=== PATIENT | female | born 1990 | race Asian ===

== ENCOUNTER 2022-04-24 07:43 | Inpatient (IN) ==
[2022-04-24] MEDS ORDERED: OXYTOCIN 30 UNITS/500 ML BAG IV PRN ×2 (07:46)
[2022-04-24 08:55] LABS: Hematocrit (blood only) 38.4 % (37-47); Hemoglobin 12.8 g/dL (12.0-16.0); Mean Corpuscular Hemoglobin 32.2 pg (25-34); Mean Corpuscular Hgb Conc 33.3 g/dL (32-36); Mean Corpuscular Volume 96.7 fL (80-100); Mean Platelet Volume 11.1 fL (7.4-10.4); Platelet Count 183 K/uL (130-400); RDW Coefficient of Variation 14.6 % (11.5-14.5); RDW Standard Deviation 51.7 fL (36.4-46.3); Red Blood Count 3.97 M/uL (4.2-5.4); White Blood Count 7.99 K/uL (4.8-10.8)
[2022-04-24] MEDS: LACTATED RINGER'S 1,000 ML IV PRN ×3 (09:24→17:14)
--- NOTE | 2022-04-24 09:29 | History & Physical Report ---
Date of Service April 24, 2022 Assessment & Plan (1) Encounter for induction of labor: (2) resulting from in vitro fertilization, antepartum: Plan: admit, iv, labs. start pitocin. arom done. fhts categ 1. Admission and Anticipated Discharge Date Admission Date: April 24, 2022 History of Present Illness Chief Complaint: planned induction Primary Care Provider: Diogo Huffman III, CRNP 31yo at 39+wks ega presents to L&D with above cc. Elective induction. PNC c/b 1. IVF, normal echo PNL rh pos, ri ,gbs neg OBH: x 1 GYNH: nl paps, no stds Allergies Allergy/AdvReac Type Severity Reaction Status Date / Time No Known Allergies Allergy Verified 04/23/22 11:22 Home Medications Medication Instructions Recorded Confirmed Type aspirin 81 mg chewable tablet 81 mg PO DAILY 01/08/22 04/24/22 History mv-ferrous vgjicfrz-Th-L-FA 65 1 tab PO DAILY #30 tab 03/12/22 04/24/22 Rx mg-1 mg tablet (Vitafol) Patient History Medical History History of chicken pox Miscarriage Surgical History S/P dilatation and curettage S/P wisdom tooth extraction Family History Father Lung cancer Mother Diabetes Grandmother (Maternal) Diabetes Denies family history of Ovarian cancer Breast cancer Colorectal cancer Social History Smoking Status: Never smoker Second Hand Exposure: Yes; Hx Alcohol Use: No Hx Substance Use: No Preferred Language: Mandarin Tuvaluan Communication Ability: Effective Visual Impairment: No Limitations Hearing Ability: Normal Ham Smoker Required: No Beliefs That Will Affect Care: None marital status: Single marital status details: fob engaged-[employer] (36) [phone] Current Living Situation: Significant Other Current Living Situation Comment: lives with fob, no pets current occupational status: unemployed current occupation: working from home Other Information That Helps Us Care for You: No Feels Safe at Home: Yes Safety Concerns: Feels Safe At This Time Childhood Exposure to Second-Hand Smoke: No caffeine: No during the past year weight has: increased > 10 lbs Dental Care, Regularly: Yes Physical Activity Frequency: Daily Seatbelt Use: always Sunscreen Use: No Assistive Devices: Glasses Review of Systems as per Subjective / HPI Physical Exam Constitutional: WD/WN, vitals as above Respiratory: normal respiratory effort, lungs clear to auscultation Cardiovascular: Rate/Rhythm: regular rate and regular rhythm Gastrointestinal (Abdomen): soft gravid nt efw 7-8# Musculoskeletal: no edema nontender calves Neurologic: grossly normal Psychiatric: A+Ox3, euthymic affect Genitourinary: Manual OB Exam: + cervical dilation (3), + cervical effacement (75%), + station (mid soft) -2 and + amniotic fluid clear OB Exam Monitor Tracing: + external FHT monitor used, + external uterine monitor used (q5), + category I and + normal FHT variability Results & Data ([facility]) Vital Signs (Past 12 Hours) Vital Signs Temp Pulse Resp BP 04/24/22 08:12 97.7 F 85 18 124/73 04/24/22 07:54 97.7 F 18 04/24/22 07:53 85 124/73 Coding Level of Care Code None Diagnoses Encounter for induction of labor Z34.90 resulting from in vitro fertilization, antepartum O09.819
[2022-04-24] MEDS ORDERED: fentaNYL citrate 100 MCG/2 ML VIAL ONE ×3 (11:46→21:06)
[2022-04-24] MEDS ORDERED: SODIUM CHLORIDE 0.9% INJ 10 ML VIAL ONE (11:46)
[2022-04-24] MEDS ORDERED: BUPIVACAINE 0.25% 30 ML VIAL ONE ×2 (11:46→18:37)
[2022-04-24] MEDS ORDERED: ePHEDrine sulfate 50 MG/ML AMP ONE (11:46)
[2022-04-24] MEDS ORDERED: fentaNYL 2MCG/ML ROPIVACAINE 1.25MG/ML 100 ML BAG EPI ONE (11:47)
[2022-04-24] MEDS ORDERED: NALBUPHINE HCL INJ 10 MG/ML AMP IV PRN ×2 (11:58→21:45)
[2022-04-24] MEDS ORDERED: diphenhydrAMINE 50 MG/ML VIAL IV PRN ×2 (11:58→21:45)
[2022-04-24] MEDS ORDERED: NALOXONE HCL 0.4 MG/1 ML VIAL/CARP IV PRN ×2 (11:58→21:45)
[2022-04-24] MEDS ORDERED: ONDANSETRON INJ 2 MG/ML 2 ML VIAL IV PRN ×2 (11:58→21:47)
[2022-04-24] MEDS ORDERED: fentaNYL 2MCG/ML ROPIVACAINE 1.25MG/ML 100 ML BAG EPI PRN (11:58)
[2022-04-24] MEDS ORDERED: NALOXONE HCL 1 MG in SODIUM CHLORIDE 0.9% 1000ML 1,000 ML IV PRN ×2 (11:58→21:45)
[2022-04-24] MEDS ORDERED: ePHEDrine sulfate 50 MG/ML AMP IV PRN ×2 (11:58→21:45)
--- NOTE | 2022-04-24 11:58 | Anesthesiology Consultation ---
Date of Service April 24, 2022 Assessment & Plan ASA ASA2 Proposed Anesthesia Anesthesia Type: Labor Epidural Risk / Benefits Reviewed With: PT / POA / Parent / Guardian, Accepts Plan and Informed Consent Obtained History Height/Weight Height: 5 ft 3 in Weight: 90.265 kg Allergies Allergy/AdvReac Type Severity Reaction Status Date / Time No Known Allergies Allergy Verified 04/23/22 11:22 Medications Home Medications Medication Instructions Recorded Confirmed Last Taken aspirin 81 mg chewable tablet 81 mg PO DAILY 01/08/22 04/24/22 04/23/22 21:00 mv-ferrous qqqdthrg-Ea-G-FA 65 1 tab PO DAILY #30 tab 03/12/22 04/24/22 04/22/22 08:00 mg-1 mg tablet (Vitafol) Active Medications Generic Name Dose Route Start Last Admin Trade Name Freq PRN Reason Stop Dose Admin Oxytocin 30 units in 500 mls @ 11 mls/hr 04/24/22 07:46 04/24/22 13:30 Pitocin IV 04/26/22 07:45 0.66 units/hr .Q24H PRN 11 mls/hr Labor Induction/Augmentation Titration Protocol 0.66 UNITS/HR Lactated Ringer's 1,000 mls @ 125 mls/hr 04/24/22 07:46 04/24/22 12:49 Lr IV 04/26/22 07:45 125 mls/hr .Q8H PRN Infusion L&D Protocol Protocol Past Medical History Medical History History of chicken pox Miscarriage Exercise / Class Metabolic Activity II 4-5 Yardwork/Stairs/Walk up hill Past Family History Family History Father Lung cancer Mother Diabetes Grandmother (Maternal) Diabetes Denies family history of Ovarian cancer Breast cancer Colorectal cancer Past Surgical History Surgical History S/P dilatation and curettage S/P wisdom tooth extraction Past Anesthesia History No Hx of Anesthesia Complications and No Family Hx of Anesthesia Complications History of PONV No Hx of PONV and No Hx of Motion Sickness Social History Smoking Status: Never smoker Hx Alcohol Use: No Hx Substance Use: No substance use type: does not use Review of Systems denies fever/cough/ colds/ chest pain/ SOB/ DAISY denies DAISY Physical Exam Vital Signs Last Vital Signs Temp 36.8 C 04/24/22 13:30 Pulse 84 04/24/22 14:01 Resp 18 04/24/22 13:30 BP 108/57 L 04/24/22 13:51 Pulse Ox 99 04/24/22 14:01 ENMT Mouth: no TMJ abnormality and no dentition abnormality Thyromental Distance: > or= 3.5 Finger Breadths Mallampati Class: II Neck neck extension not limited Respiratory normal respiratory effort; no respiratory distress Auscultation: lungs clear to auscultation bilaterally Cardiovascular Rate/Rhythm: regular rate and regular rhythm Neurologic moves all extremities Psychiatric Orientation: alert and oriented x 3 Testing Laboratory Results 04/24/22 08:30
--- NOTE | 2022-04-24 13:00 | Labor Progress Brief Note ---
Date of Service April 24, 2022 Subjective getting comfortable with epidural Assessment & Plan (1) Encounter for induction of labor: (2) resulting from in vitro fertilization, antepartum: Plan: c/w pit, good cx change. fhts categ 1. Admission and Anticipated Discharge Date Admission Date: April 24, 2022 Physical Exam Constitutional: WD/WN, vitals as above Genitourinary: Manual OB Exam: + cervical dilation 5 cm, + cervical effacement 90% and + station -1 OB Exam Monitor Tracing: + external FHT monitor used, + external uterine monitor used (q2-3 pit at 9), + category I and + normal FHT variability Results & Data ([facility]) Vital Signs (Past 12 Hours) Vital Signs Temp Pulse Resp BP Pulse Ox 04/24/22 12:56 84 97 04/24/22 12:51 78 99 04/24/22 12:50 81 117/70 04/24/22 12:46 81 111/69 99 04/24/22 12:41 83 98 04/24/22 12:40 81 116/69 04/24/22 12:36 85 99 04/24/22 12:33 82 107/67 04/24/22 12:31 80 112/71 99 04/24/22 12:29 85 109/68 04/24/22 12:27 86 113/68 04/24/22 12:26 84 98 04/24/22 12:25 75 116/69 04/24/22 12:24 94 H 102/55 L 04/24/22 12:22 93 H 125/72 04/24/22 12:21 82 99 04/24/22 12:16 95 H 99 04/24/22 11:42 97.9 F 18 04/24/22 11:31 88 119/80 04/24/22 10:30 78 117/77 04/24/22 10:01 77 120/75 04/24/22 09:30 97.7 F 18 04/24/22 08:12 97.7 F 85 18 124/73 04/24/22 07:54 97.7 F 18 04/24/22 07:53 85 124/73 Coding Level of Care Code None Diagnoses Encounter for induction of labor Z34.90 resulting from in vitro fertilization, antepartum O09.819
--- NOTE | 2022-04-24 15:25 | Labor Progress Brief Note ---
Date of Service April 24, 2022 Subjective comfortable Assessment & Plan (1) Encounter for induction of labor: (2) resulting from in vitro fertilization, antepartum: Plan: ready for 2nd stage. fhts categ 1. Admission and Anticipated Discharge Date Admission Date: April 24, 2022 Physical Exam Constitutional: WD/WN, vitals as above Genitourinary: Manual OB Exam: + cervical dilation 10 cm, + cervical effacement 100% and + station + 2 OB Exam Monitor Tracing: + external FHT monitor used, + external uterine monitor used (q2), + category I and + normal FHT variability Results & Data ([facility]) Vital Signs (Past 12 Hours) Vital Signs Temp Pulse Resp BP Pulse Ox 04/24/22 15:21 90 116/69 04/24/22 15:16 77 98 04/24/22 15:11 100 H 99 04/24/22 15:06 88 113/70 99 04/24/22 15:01 82 100 04/24/22 14:56 83 99 04/24/22 14:52 80 105/62 04/24/22 14:51 82 99 04/24/22 14:46 92 H 99 04/24/22 14:41 81 100 04/24/22 14:36 82 106/59 L 99 04/24/22 14:31 84 100 04/24/22 14:30 18 04/24/22 14:26 84 102/57 L 98 04/24/22 14:21 84 99 04/24/22 14:16 84 99 04/24/22 14:11 88 100 04/24/22 14:06 91 H 104/55 L 99 04/24/22 14:01 84 99 04/24/22 14:00 18 04/24/22 13:56 89 98 04/24/22 13:51 86 108/57 L 98 04/24/22 13:46 85 99 04/24/22 13:41 86 98 04/24/22 13:36 84 108/55 L 99 04/24/22 13:31 90 99 04/24/22 13:30 98.2 F 18 04/24/22 13:26 88 98 04/24/22 13:22 85 108/74 04/24/22 13:21 87 98 04/24/22 13:16 88 98 04/24/22 13:11 81 99 04/24/22 13:06 79 99 04/24/22 13:05 86 113/69 04/24/22 13:01 83 99 04/24/22 13:00 18 04/24/22 12:56 84 97 04/24/22 12:51 78 99 04/24/22 12:50 81 117/70 04/24/22 12:46 81 111/69 99 04/24/22 12:41 83 98 04/24/22 12:40 81 116/69 04/24/22 12:36 85 99 04/24/22 12:33 82 107/67 04/24/22 12:31 80 112/71 99 04/24/22 12:30 18 04/24/22 12:29 85 109/68 04/24/22 12:27 86 113/68 04/24/22 12:26 84 98 04/24/22 12:25 75 116/69 04/24/22 12:24 94 H 102/55 L 04/24/22 12:22 93 H 125/72 04/24/22 12:21 82 99 04/24/22 12:16 95 H 99 04/24/22 11:42 97.9 F 18 04/24/22 11:31 88 119/80 04/24/22 10:30 78 117/77 04/24/22 10:01 77 120/75 04/24/22 09:30 97.7 F 18 04/24/22 08:12 97.7 F 85 18 124/73 04/24/22 07:54 97.7 F 18 04/24/22 07:53 85 124/73 Coding Level of Care Code None Diagnoses Encounter for induction of labor Z34.90 resulting from in vitro fertilization, antepartum O09.819
[2022-04-24] MEDS ORDERED: NURSING L&D Epidural Breakthrough Pain Update ONE (18:31)
[2022-04-24] MEDS ORDERED: LIDOCAINE 2% MPF LOCAL 5 ML VIAL INFIL ONE (18:32)
[2022-04-24] MEDS ORDERED: BUPIVACAINE 0.5 % 5 MG/1 ML PF 10ML VIAL ONE (18:32)
[2022-04-24] MEDS ORDERED: LIDOCAINE 2% 20 MG/ML 5 ML SYR IV ONE (18:32)
--- NOTE | 2022-04-24 18:44 | Communication Note ---
Date of Service: April 24, 2022 pt c/o increased pain with pushing. pt epidural at 11 cm. bolus 100mcg fentanyl, 2 mL 2%lidocaine, and 3 mL of 0.25% marcaine. pt vss
[2022-04-24] MEDS ORDERED: LIDOCAINE 2%/EPINEPHRINE 1:200,000 20 ML SDV ONE (20:15)
--- NOTE | 2022-04-24 20:26 | Labor Progress Brief Note ---
Date of Service April 24, [address] exhausted, not wanting to push , continued lower abdominal pain, anesthesia has tried to address twice. Assessment & Plan (1) Encounter for induction of labor: (2) resulting from in vitro fertilization, antepartum: Plan: fhts categ 1, some early decels and cephalic visible but maternal expulsive efforts are more, i feel no reliability that she will give effort with any attempt at vacuum assistance. can cont to push or option for c/s due to failure to descend discussed. couple discussed and pt ultimately elects c/s. she is in pain and does not feel she can go on with pushing. consent reviewed and signed. risks reviewed and alternatives. anesth aware and OR being readied. tried to offer support as patient anxious about her pain control. reviewed with a louis pt concerns. proceed soon. Admission and Anticipated Discharge Date Admission Date: April 24, 2022 Physical Exam Genitourinary: Manual OB Exam: + cervical dilation 10 cm, + cervical effacement 100% and + station (to +2 molding) + 1 OB Exam Monitor Tracing: + external FHT monitor used, + external uterine monitor used (q2-3), + category I and + normal FHT variability pushed with patient and very inconsistent effort as she is crying and rolling in bed in pain. Results & Data ([facility]) Vital Signs (Past 12 Hours) Vital Signs Temp Pulse Resp BP Pulse Ox 04/24/22 20:17 104 H 99 04/24/22 20:12 101 H 97 04/24/22 20:07 104 H 98 04/24/22 20:05 109 H 83 L 04/24/22 20:02 99 H 98 04/24/22 19:58 104 H 116/69 04/24/22 19:57 110 H 98 04/24/22 19:52 116 H 99 04/24/22 19:47 99 H 98 04/24/22 19:43 97 H 132/70 04/24/22 19:42 102 H 98 04/24/22 19:37 93 H 97 04/24/22 19:32 104 H 97 04/24/22 19:27 97 H 99 04/24/22 19:22 96 H 99 04/24/22 19:21 92 H 119/69 04/24/22 19:17 105 H 99 04/24/22 19:13 90 130/74 04/24/22 19:12 90 99 04/24/22 19:07 96 H 98 04/24/22 19:02 92 H 99 04/24/22 18:57 97 H 99 04/24/22 18:52 99 H 116/56 L 98 04/24/22 18:48 97 H 110/75 04/24/22 18:47 99 H 99 04/24/22 18:43 105 H 120/55 L 04/24/22 18:42 97.7 F 104 H 18 100 04/24/22 18:37 102 H 143/78 H 97 04/24/22 18:32 102 H 96 04/24/22 18:27 126 H 100 04/24/22 18:25 98.1 F 18 04/24/22 18:22 103 H 99 04/24/22 18:20 135/72 04/24/22 18:17 104 H 100 04/24/22 18:12 105 H 98 04/24/22 18:07 113 H 94 04/24/22 18:06 104 H 127/70 04/24/22 18:02 114 H 98 04/24/22 17:57 105 H 98 04/24/22 17:52 115 H 98 04/24/22 17:51 129 H 127/75 04/24/22 17:47 106 H 99 04/24/22 17:42 112 H 98 04/24/22 17:37 102 H 98 04/24/22 17:32 107 H 98 04/24/22 17:27 95 H 99 04/24/22 17:24 98.1 F 18 04/24/22 17:22 99 H 97 04/24/22 17:21 98 H 119/71 04/24/22 17:17 98 H 99 04/24/22 17:12 104 H 98 04/24/22 17:07 112 H 100 04/24/22 17:02 117 H 99 04/24/22 16:57 110 H 98 04/24/22 16:55 92 H 118/71 04/24/22 16:52 104 H 98 04/24/22 16:50 123 H 195/143 H 04/24/22 16:47 106 H 99 04/24/22 16:42 104 H 98 04/24/22 16:37 98 H 98 04/24/22 16:34 98.1 F 18 04/24/22 16:32 104 H 97 04/24/22 16:31 106 H 87 L 04/24/22 16:26 115 H 98 04/24/22 16:21 106 H 131/74 98 04/24/22 16:16 143 H 98 04/24/22 16:13 110 H 90 04/24/22 16:11 111 H 98 04/24/22 16:08 105 H 92 04/24/22 16:06 105 H 129/63 98 04/24/22 16:01 111 H 98 04/24/22 15:59 111 H 86 L 04/24/22 15:56 100 H 99 04/24/22 15:51 97 H 119/67 98 04/24/22 15:46 111 H 98 04/24/22 15:45 98.4 F 20 04/24/22 15:43 134 H 92 04/24/22 15:41 124 H 84 L 04/24/22 15:37 121 H 92 04/24/22 15:36 98.2 F 94 H 20 134/72 100 04/24/22 15:31 85 100 04/24/22 15:26 85 100 04/24/22 15:21 101 H 116/69 100 04/24/22 15:16 77 98 04/24/22 15:11 100 H 99 04/24/22 15:06 88 113/70 99 04/24/22 15:01 82 100 04/24/22 14:56 83 99 04/24/22 14:52 80 105/62 04/24/22 14:51 82 99 04/24/22 14:46 92 H 99 04/24/22 14:41 81 100 04/24/22 14:36 82 106/59 L 99 04/24/22 14:31 84 100 04/24/22 14:30 18 04/24/22 14:26 84 102/57 L 98 04/24/22 14:21 84 99 04/24/22 14:16 84 99 04/24/22 14:11 88 100 04/24/22 14:06 91 H 104/55 L 99 04/24/22 14:01 84 99 04/24/22 14:00 18 04/24/22 13:56 89 98 04/24/22 13:51 86 108/57 L 98 04/24/22 13:46 85 99 04/24/22 13:41 86 98 04/24/22 13:36 84 108/55 L 99 04/24/22 13:31 90 99 04/24/22 13:30 98.2 F 18 04/24/22 13:26 88 98 04/24/22 13:22 85 108/74 04/24/22 13:21 87 98 04/24/22 13:16 88 98 04/24/22 13:11 81 99 04/24/22 13:06 79 99 04/24/22 13:05 86 113/69 04/24/22 13:01 83 99 04/24/22 13:00 18 04/24/22 12:56 84 97 04/24/22 12:51 78 99 04/24/22 12:50 81 117/70 04/24/22 12:46 81 111/69 99 04/24/22 12:41 83 98 04/24/22 12:40 81 116/69 04/24/22 12:36 85 99 04/24/22 12:33 82 107/67 04/24/22 12:31 80 112/71 99 04/24/22 12:30 18 04/24/22 12:29 85 109/68 04/24/22 12:27 86 113/68 04/24/22 12:26 84 98 04/24/22 12:25 75 116/69 04/24/22 12:24 94 H 102/55 L 04/24/22 12:22 93 H 125/72 04/24/22 12:21 82 99 04/24/22 12:16 95 H 99 04/24/22 11:42 97.9 F 18 04/24/22 11:31 88 119/80 04/24/22 10:30 78 117/77 04/24/22 10:01 77 120/75 04/24/22 09:30 97.7 F 18 Coding Level of Care Code None Diagnoses Encounter for induction of labor Z34.90 resulting from in vitro fertilization, antepartum O09.819
[2022-04-24] MEDS ORDERED: ceFAZolin 2000MG 2,000 MG/15 ML SYR IV SCH (20:30)
[2022-04-24] MEDS ORDERED: TERBUTALINE SULFATE 1 MG/ML VIAL SQ ONE (20:36)
[2022-04-24] MEDS ORDERED: MoRPHine SULFATE PF 1 MG/ML 10 ML AMP/VIAL ONE (21:41)
[2022-04-24] MEDS ORDERED: PHENYLEPHRINE 100MCG/ML 5ML SYR ONE (21:41)
[2022-04-24] MEDS ORDERED: NO NARCOTICS OR SEDATIVES SCH (21:45)
[2022-04-24] MEDS ORDERED: SODIUM CHLORIDE 0.9% 1000ML 1,000 ML IV SCH (21:45)
[2022-04-24] MEDS ORDERED: DC INTRASPINAL MORPHINE SCH (21:45)
[2022-04-24] MEDS ORDERED: NALOXONE HCL 0.08 MG in SYRINGE 1.8 ML IV PRN (21:45)
[2022-04-24] MEDS ORDERED: MoRPHine SULFATE PF 1 MG/ML 10 ML AMP/VIAL EPI ONE (21:45)
[2022-04-24] MEDS ORDERED: MoRPHine SULFATE 2 MG/ML CARP IV PRN (21:45)
[2022-04-24] MEDS ORDERED: KETOROLAC 30 MG/ML VIAL IV PRN (21:45)
[2022-04-24] MEDS ORDERED: LACTATED RINGER'S 500 ML IV PRN (21:45)
--- NOTE | 2022-04-24 21:53 | Post Operative Brief Note ---
PG Immediate Post Op with CF Date of Surgery April 24, 2022 Pre & Post Diagnosis Operation Date: 04/24/22 20:15 <No data on this case meets the specified criteria> Term iup via IVF Induction of Labor Failure to Descend I identified the patient and participated in the time-out.: Yes Procedure Operation Date: 04/24/22 20:15 <No data on this case meets the specified criteria> Primary Low Transverse Section Surgeon Erin De Luna MD, FACOG Arc Welder RN Estimated Blood Loss 500 Findings Consistent with Post-Op Diagnosis (viable male apgars 8,9. normal uterus, tubes and ovaries bilaterally) Fluids 1500 Specimens Specimen Description: cord blood Drains Reed Catheter Anesthesia Type Labor Epidural Complications none Disposition Accompanied Patient To Recovery: No Disposition: L&D
--- NOTE | 2022-04-24 22:09 | Operative Report ---
PG Post Operative Report Pre & Post Diagnosis Operation Date: 04/24/22 20:15 <No data on this case meets the specified criteria> 1. Term iup 2. Induction of Labor 3. IVF 4. Failure to descend I identified the patient and participated in the time-out.: Yes Procedure Operation Date: 04/24/22 20:15 <No data on this case meets the specified criteria> Primary Low Transverse Section Surgeon Erin De Luna MD, FACOG Consultant Teacher RN Estimated Blood Loss 500 Findings Consistent with Post-Op Diagnosis (viable male apgars 8,9. normal uterus, tubes and ovaries bilaterally) Fluids 1500 Specimens cord blood Drains maddox Anesthesia Type Labor Epidural Complications none Disposition Accompanied Patient To Recovery: No Disposition: L&D Indications 31yo admitted for postdates induction of labor in background of ivf at 40+wks ega. She received pitocin and arom and an epidural. She dilated to complete and pushed x about 3-4hrs and was having pain that could not be controlled and failure to descend with poor maternal expulsive efforts due to pain. She was offered and accepted section. Description of Procedure The patient was taken to the operating room and identified. After adequate anesthesia was obtained, she was placed in the supine position with a leftward tilt on the operating table and prepped and draped in the usual sterile fashion. A maddox catheter had already been placed. The knife was used to create a Pfannensteil skin incision that was carried down to the underlying layer of fascia. The fascia was nicked in the midline and this opening was extended laterally using Ferrara scissors. Tracy clamps were placed on the superior and inferior aspect of the fascial incision tenting it upward and the underlying rectus muscles were dissected off the overlying fascia both sharply and bluntly using Ferrara scissors. The rectus muscles were bluntly in the midline. The peritoneal cavity was bluntly entered into. This opening was stretched. The bladder blade was placed. The vesicouterine peritoneum was elevated and opened up into and the bladder flap was created digitally and bladder blade was replaced. The knife was used to create a hysterotomy and this opening was stretched. The operators hand was placed through the hysterotomy and the bladder blade was removed. The head was elevated and flexed and with fundal pressure the head was delivered. The shoulders and body were rapidly delivered. The cord was clamped and cut and the 's mouth and nares were bulb suction. The was handed off to the awaiting pediatricians. Cord blood was obtained. The placenta was manually expressed. The uterus was exteriorized and cleared of all clots and debris. Dilute IV Pitocin was begun. The uterine tone was improving. The hysterotomy was closed in a running interlocking fashion using 0 Vicryl followed by a second imbricating layer of 0 Vicryl. The hysterotomy was not hemostatic and additional figure of eight suture was placed at left of hysterotomy for excellent hemostasis. Fluid and blood was suctioned from the pelvis. The uterus was returned to the abdomen. The gutters were cleared of all clots and debris. The hysterotomy was reinspected and noted to be hemostatic. The fascia was then closed in running fashion using 0 Vicryl. The subcutaneous fat was copiously irrigated and reapproximated using 2-0 chromic. The skin was closed in a subcuticular fashion using 4-0 Vicryl. At this point the procedure was terminated. The patient was transferred to the recovery room in stable condition. All sponge, lap and needle counts are correct x2. I attest to the content of the Intraoperative Record and any orders documented therein. Any exceptions are noted below. OB Procedure Charges 95839
[2022-04-24] MEDS ORDERED: SENNA 8.6 MG TAB PO PRN (22:33)
[2022-04-24] MEDS ORDERED: DIPHTHERIA/TETANUS/PERTUSSIS 0.5 ML SYR/VIAL IM ONE (22:33)
[2022-04-24] MEDS ORDERED: HYDROCORTISONE ACETATE 25 MG SUPP PR PRN (22:33)
[2022-04-24] MEDS ORDERED: MAGNESIUM HYDROXIDE SUSP 30 ML UDC PO PRN (22:33)
[2022-04-24] MEDS ORDERED: BENZOCAINE 20% AER SPR 82.5 GM CAN EXT PRN (22:33)
[2022-04-24] MEDS: OXYTOCIN 20 UNITS in LACTATED RINGER'S 1,000 ML IV SCH (23:13)
--- NOTE | 2022-04-24 23:34 | Anesthesiology Progress Note ---
Date of Service April 24, 2022 Anesthesia Post Procedure Vital Signs Vital Signs: Temp Pulse Resp BP Pulse Ox 04/24/22 23:32 104 H 97 04/24/22 23:27 102 H 98 04/24/22 23:22 104 H 98 04/24/22 23:17 104 H 98 04/24/22 23:13 100 H 91/55 L 04/24/22 23:12 100 H 96 04/24/22 23:10 37.5 C 18 98 04/24/22 23:07 103 H 97 04/24/22 23:03 37.5 C 102 H 19 97/52 L 98 04/24/22 23:02 101 H 98 04/24/22 22:57 101 H 98 04/24/22 22:53 105 H 22 98/55 L 99 04/24/22 22:52 98 H 97 04/24/22 22:47 102 H 98 04/24/22 22:43 104 H 99/53 L 04/24/22 22:42 37.0 C 102 H 19 98 04/24/22 22:37 111 H 97 04/24/22 22:33 113 H 99/55 L 04/24/22 22:32 104 H 99 04/24/22 22:27 103 H 99 04/24/22 22:23 108 H 18 106/51 L 99 04/24/22 22:22 107 H 18 98 04/24/22 22:17 104 H 100 04/24/22 22:13 114 H 111/54 L 04/24/22 22:12 109 H 18 99 04/24/22 22:07 114 H 100 04/24/22 22:03 112 H 113/53 L 04/24/22 22:02 36.7 C 106 H 16 111/54 L 99 04/24/22 20:47 118 H 100 04/24/22 20:42 111 H 99 04/24/22 20:37 104 H 100 04/24/22 20:32 106 H 99 04/24/22 20:27 110 H 98 04/24/22 20:22 112 H 100 04/24/22 20:17 104 H 99 04/24/22 20:12 101 H 97 04/24/22 20:07 104 H 98 04/24/22 20:05 109 H 83 L 04/24/22 20:02 99 H 98 04/24/22 19:58 104 H 116/69 04/24/22 19:57 110 H 98 04/24/22 19:52 116 H 99 04/24/22 19:47 99 H 98 04/24/22 19:45 36.6 C 20 98 04/24/22 19:43 97 H 132/70 04/24/22 19:42 102 H 98 04/24/22 19:37 93 H 97 04/24/22 19:32 104 H 97 04/24/22 19:27 97 H 99 04/24/22 19:22 96 H 99 04/24/22 19:21 92 H 119/69 04/24/22 19:17 105 H 99 04/24/22 19:13 90 130/74 04/24/22 19:12 90 99 04/24/22 19:07 96 H 98 04/24/22 19:02 92 H 99 04/24/22 18:57 97 H 99 04/24/22 18:52 99 H 116/56 L 98 04/24/22 18:48 97 H 110/75 04/24/22 18:47 99 H 99 04/24/22 18:43 105 H 120/55 L 04/24/22 18:42 36.5 C 104 H 18 100 04/24/22 18:37 102 H 143/78 H 97 04/24/22 18:32 102 H 96 04/24/22 18:27 126 H 100 04/24/22 18:25 36.7 C 18 04/24/22 18:22 103 H 99 04/24/22 18:20 135/72 04/24/22 18:17 104 H 100 04/24/22 18:12 105 H 98 04/24/22 18:07 113 H 94 04/24/22 18:06 104 H 127/70 04/24/22 18:02 114 H 98 04/24/22 17:57 105 H 98 04/24/22 17:52 115 H 98 04/24/22 17:51 129 H 127/75 04/24/22 17:47 106 H 99 04/24/22 17:42 112 H 98 04/24/22 17:37 102 H 98 04/24/22 17:32 107 H 98 04/24/22 17:27 95 H 99 04/24/22 17:24 36.7 C 18 04/24/22 17:22 99 H 97 04/24/22 17:21 98 H 119/71 04/24/22 17:17 98 H 99 04/24/22 17:12 104 H 98 04/24/22 17:07 112 H 100 04/24/22 17:02 117 H 99 04/24/22 16:57 110 H 98 04/24/22 16:55 92 H 118/71 04/24/22 16:52 104 H 98 04/24/22 16:50 123 H 195/143 H 04/24/22 16:47 106 H 99 04/24/22 16:42 104 H 98 04/24/22 16:37 98 H 98 04/24/22 16:34 36.7 C 18 04/24/22 16:32 104 H 97 04/24/22 16:31 106 H 87 L 04/24/22 16:26 115 H 98 04/24/22 16:21 106 H 131/74 98 04/24/22 16:16 143 H 98 04/24/22 16:13 110 H 90 04/24/22 16:11 111 H 98 04/24/22 16:08 105 H 92 04/24/22 16:06 105 H 129/63 98 04/24/22 16:01 111 H 98 04/24/22 15:59 111 H 86 L 04/24/22 15:56 100 H 99 04/24/22 15:51 97 H 119/67 98 04/24/22 15:46 111 H 98 04/24/22 15:45 36.9 C 20 04/24/22 15:43 134 H 92 04/24/22 15:41 124 H 84 L 04/24/22 15:37 121 H 92 04/24/22 15:36 36.8 C 94 H 20 134/72 100 04/24/22 15:31 85 100 04/24/22 15:26 85 100 04/24/22 15:21 101 H 116/69 100 04/24/22 15:16 77 98 04/24/22 15:11 100 H 99 04/24/22 15:06 88 113/70 99 04/24/22 15:01 82 100 04/24/22 14:56 83 99 04/24/22 14:52 80 105/62 06/28/22 14:51 82 99 04/24/22 14:46 92 H 99 04/24/22 14:41 81 100 04/24/22 14:36 82 106/59 L 99 04/24/22 14:31 84 100 04/24/22 14:30 18 04/24/22 14:26 84 102/57 L 98 04/24/22 14:21 84 99 04/24/22 14:16 84 99 04/24/22 14:11 88 100 04/24/22 14:06 91 H 104/55 L 99 04/24/22 14:01 84 99 04/24/22 14:00 18 04/24/22 13:56 89 98 04/24/22 13:51 86 108/57 L 98 04/24/22 13:46 85 99 04/24/22 13:41 86 98 04/24/22 13:36 84 108/55 L 99 04/24/22 13:31 90 99 04/24/22 13:30 36.8 C 18 04/24/22 13:26 88 98 04/24/22 13:22 85 108/74 04/24/22 13:21 87 98 04/24/22 13:16 88 98 04/24/22 13:11 81 99 04/24/22 13:06 79 99 04/24/22 13:05 86 113/69 04/24/22 13:01 83 99 04/24/22 13:00 18 04/24/22 12:56 84 97 04/24/22 12:51 78 99 04/24/22 12:50 81 117/70 04/24/22 12:46 81 111/69 99 04/24/22 12:41 83 98 04/24/22 12:40 81 116/69 04/24/22 12:36 85 99 04/24/22 12:33 82 107/67 04/24/22 12:31 80 112/71 99 04/24/22 12:30 18 04/24/22 12:29 85 109/68 04/24/22 12:27 86 113/68 04/24/22 12:26 84 98 04/24/22 12:25 75 116/69 04/24/22 12:24 94 H 102/55 L 04/24/22 12:22 93 H 125/72 06/28/22 12:21 82 99 04/24/22 12:16 95 H 99 04/24/22 11:42 36.6 C 18 04/24/22 11:31 88 119/80 04/24/22 10:30 78 117/77 04/24/22 10:01 77 120/75 04/24/22 09:30 36.5 C 18 04/24/22 08:12 36.5 C 85 18 124/73 04/24/22 07:54 36.5 C 04/24/22 07:53 85 124/73 Pain Intensity Lower Abdomen: Pain Intensity: 7 Transfer of Care Handoff Completed per policy Notes Mental Status: alert / awake / arousable and participated in evaluation Patient Amnestic to Procedure: Yes Nausea / Vomiting: adequately controlled Pain: adequately controlled Airway Patency, RR, SpO2: stable & adequate BP & HR: stable & adequate Hydration State: stable & adequate Anesthetic Complications: no major complications apparent and Pt Satisfied with anesthetic care
[2022-04-25 06:47] LABS: Basophils # (auto) 0.02 K/uL (0-0.2); Basophils % (auto) 0.1 %; Eosinophils # (auto) 0.03 K/uL (0-0.5); Eosinophils % (auto) 0.2 %; Hematocrit (blood only) 33.9 % (37-47); Hemoglobin 11.2 g/dL (12.0-16.0); Immature Granulocytes # (auto) 0.03 K/uL (0.00-0.02); Immature Granulocytes % (auto) 0.2 %; Lymphocytes # (auto) 1.44 K/uL (1.2-3.4); Lymphocytes % (auto) 10.2 %; Mean Corpuscular Hemoglobin 31.7 pg (25-34); Mean Platelet Volume 10.4 fL (7.4-10.4); Monocytes # (auto) 1.22 K/uL (0.11-0.59); Monocytes % (auto) 8.7 %; Neutrophils # (auto) 11.33 K/uL (1.4-6.5); Neutrophils % (auto) 80.6 %; Platelet Count 163 K/uL (130-400); RDW Coefficient of Variation 14.7 % (11.5-14.5); RDW Standard Deviation 51.2 fL (36.4-46.3); Red Blood Count 3.53 M/uL (4.2-5.4); White Blood Count 14.07 K/uL (4.8-10.8)
--- NOTE | 2022-04-25 07:15 | Obstetrical Progress Note ---
Date of Service April 25, 2022 Assessment & Plan (1) care following delivery: stable, routine care. adv diet, po meds. ambulate after duramorph orders up and remove maddox for voiding trial. bottle feeding. rh pos, ri. labs reviewed. Day #:: 1 Subjective Voiding: maddox catheter in place Passing Gas:: Yes Diet Tolerance:: clear liquids Lochia:: Small Feeding Type:: bottle feeding denies pain issues, in bed, enc scd use. denies cp/sob Constitutional: + as per Subjective / HPI Physical Exam Constitutional WD/WN, vitals as above Respiratory normal respiratory effort, lungs clear to auscultation Cardiovascular Rate/Rhythm: regular rate and regular rhythm Gastrointestinal (Abdomen) Inspection/Auscultation: abdomen normal to inspection and + abdominal surgical incision (dressing c/d/i) Percussion/Palpation: abdomen soft Fundus firm 1cm down Musculoskeletal nt calves no edema Neurologic grossly normal Psychiatric A+Ox3, euthymic affect Results & Data ([facility]) Vital Signs (Past 12 Hours) Vital Signs Temp Pulse Pulse Resp BP BP Pulse Ox 04/25/22 06:00 18 96 04/25/22 05:00 17 95 04/25/22 04:06 98.6 F 96 H 18 100/59 L 96 04/25/22 04:00 98.6 F 96 H 18 100/59 L 96 04/25/22 03:00 16 94 04/25/22 02:04 17 94 04/25/22 01:00 18 97 04/25/22 00:58 04/25/22 00:32 103 H 97 04/25/22 00:27 104 H 97 04/25/22 00:22 103 H 97 04/25/22 00:17 103 H 96 04/25/22 00:16 99.0 F 101 H 18 98/51 L 96 04/25/22 00:12 105 H 98/51 L 97 04/25/22 00:07 104 H 97 04/25/22 00:02 103 H 97 04/24/22 23:57 102 H 97 04/24/22 23:52 103 H 97 04/24/22 23:47 103 H 98 04/24/22 23:43 98.4 F 100 H 18 112/57 L 97 04/24/22 23:42 114 H 97 04/24/22 23:37 101 H 98 04/24/22 23:33 104 H 112/57 L 04/24/22 23:32 104 H 97 04/24/22 23:27 102 H 98 04/24/22 23:22 104 H 98 04/24/22 23:17 104 H 98 04/24/22 23:13 100 H 91/55 L 04/24/22 23:12 100 H 96 04/24/22 23:10 99.5 F 18 98 04/24/22 23:07 103 H 97 04/24/22 23:03 99.5 F 102 H 19 97/52 L 98 04/24/22 23:02 101 H 98 04/24/22 22:57 101 H 98 04/24/22 22:53 105 H 22 98/55 L 99 04/24/22 22:52 98 H 97 04/24/22 22:47 102 H 98 04/24/22 22:43 104 H 99/53 L 04/24/22 22:42 98.6 F 102 H 19 98 04/24/22 22:37 111 H 97 04/24/22 22:33 113 H 99/55 L 04/24/22 22:32 104 H 99 04/24/22 22:27 103 H 99 04/24/22 22:23 108 H 18 106/51 L 99 04/24/22 22:22 107 H 18 98 04/24/22 22:17 104 H 100 04/24/22 22:13 114 H 111/54 L 04/24/22 22:12 109 H 18 99 04/24/22 22:07 114 H 100 04/24/22 22:03 112 H 113/53 L 04/24/22 22:02 98.1 F 106 H 16 111/54 L 99 04/24/22 20:47 118 H 100 04/24/22 20:42 111 H 99 04/24/22 20:37 104 H 100 04/24/22 20:32 106 H 99 04/24/22 20:27 110 H 98 04/24/22 20:22 112 H 100 04/24/22 20:17 104 H 99 04/24/22 20:12 101 H 97 04/24/22 20:07 104 H 98 04/24/22 20:05 109 H 83 L 04/24/22 20:02 99 H 98 04/24/22 19:58 104 H 116/69 04/24/22 19:57 110 H 98 04/24/22 19:52 116 H 99 04/24/22 19:47 99 H 98 04/24/22 19:45 97.9 F 20 98 04/24/22 19:43 97 H 132/70 04/24/22 19:42 102 H 98 04/24/22 19:37 93 H 97 04/24/22 19:32 104 H 97 04/24/22 19:27 97 H 99 04/24/22 19:22 96 H 99 04/24/22 19:21 92 H 119/69 04/24/22 19:17 105 H 99 Pulse Ox 04/25/22 06:00 96 04/25/22 05:00 04/25/22 04:06 96 04/25/22 04:00 04/25/22 03:00 04/25/22 02:04 04/25/22 01:00 04/25/22 00:58 97 04/25/22 00:32 04/25/22 00:27 04/25/22 00:22 04/25/22 00:17 04/25/22 00:16 04/25/22 00:12 04/25/22 00:07 04/25/22 00:02 04/24/22 23:57 04/24/22 23:52 04/24/22 23:47 04/24/22 23:43 04/24/22 23:42 04/24/22 23:37 04/24/22 23:33 04/24/22 23:32 04/24/22 23:27 04/24/22 23:22 04/24/22 23:17 04/24/22 23:13 04/24/22 23:12 04/24/22 23:10 04/24/22 23:07 04/24/22 23:03 04/24/22 23:02 04/24/22 22:57 04/24/22 22:53 04/24/22 22:52 04/24/22 22:47 04/24/22 22:43 04/24/22 22:42 04/24/22 22:37 04/24/22 22:33 04/24/22 22:32 04/24/22 22:27 04/24/22 22:23 04/24/22 22:22 04/24/22 22:17 04/24/22 22:13 04/24/22 22:12 04/24/22 22:07 04/24/22 22:03 04/24/22 22:02 04/24/22 20:47 04/24/22 20:42 04/24/22 20:37 04/24/22 20:32 04/24/22 20:27 04/24/22 20:22 04/24/22 20:17 04/24/22 20:12 04/24/22 20:07 04/24/22 20:05 04/24/22 20:02 04/24/22 19:58 04/24/22 19:57 04/24/22 19:52 04/24/22 19:47 04/24/22 19:45 04/24/22 19:43 04/24/22 19:42 04/24/22 19:37 04/24/22 19:32 04/24/22 19:27 04/24/22 19:22 04/24/22 19:21 04/24/22 19:17
[2022-04-25] MEDS: OXYTOCIN 20 UNITS in LACTATED RINGER'S 1,000 ML IV SCH (07:21)
[2022-04-25] MEDS: FERROUS SULFATE 325 MG TAB PO SCH (08:16)
[2022-04-25] MEDS: PRENATAL VITAMIN 1 TAB PO SCH (08:16)
[2022-04-25] MEDS: SIMETHICONE 80 MG CHEW PO SCH ×4 (08:16→21:08)
[2022-04-25] MEDS: DOCUSATE SODIUM 100 MG CAP PO SCH ×2 (08:16→21:08)
[2022-04-25] MEDS ORDERED: LACTATED RINGER'S 1,000 ML IV SCH (14:45)
[2022-04-25] MEDS ORDERED: ZOLPIDEM TARTRATE 5 MG TAB PO PRN (15:46)
[2022-04-25] MEDS ORDERED: ONDANSETRON INJ 2 MG/ML 2 ML VIAL IV PRN (15:46)
[2022-04-25] MEDS ORDERED: diphenhydrAMINE Capsule 25 MG CAP PO PRN (15:46)
[2022-04-25] MEDS ORDERED: PROMETHAZINE HCL 25 MG in SODIUM CHLORIDE 0.9% 50 ML IV PRN (15:46)
[2022-04-25] MEDS ORDERED: diphenhydrAMINE 50 MG/ML VIAL IV PRN (15:46)
[2022-04-26 06:16] LABS: Hematocrit (blood only) 32.9 % (37-47); Hemoglobin 11.2 g/dL (12.0-16.0)
--- NOTE | 2022-04-26 08:27 | Obstetrical Progress Note ---
Date of Service April 26, 2022 Assessment & Plan (1) care following delivery: Day 2 s/p LTCS. Doing well. Stable for discharge Subjective Ambulation: ambulating normally Voiding: no voiding problems Passing Gas:: Yes Diet Tolerance:: regular diet Lochia:: Moderate Feeding Type:: breast feeding Physical Exam Constitutional WD/WN, vitals as above Respiratory normal respiratory effort; no respiratory distress and no labored breathing Gastrointestinal (Abdomen) Inspection/Auscultation: abdomen normal to inspection; abdomen not distended Percussion/Palpation: abdomen soft; abdomen nontender, no guarding and abdomen not rigid Incision C/D/I Genitourinary OB Exam Abdomen: + fundal height Fundus: + firm and + relation to umbilicus (Below); not tender or not boggy Results & Data ([facility]) Vital Signs (Past 12 Hours) Vital Signs Temp Pulse Resp BP Pulse Ox 04/25/22 23:50 36.8 C 94 H 18 99/64 L 96 04/25/22 21:00 37.1 C 94 H 18 101/62 96
[2022-04-26] MEDS: DOCUSATE SODIUM 100 MG CAP PO SCH ×2 (08:33→20:59)
[2022-04-26] MEDS: SIMETHICONE 80 MG CHEW PO SCH ×4 (08:33→21:00)
[2022-04-26] MEDS: FERROUS SULFATE 325 MG TAB PO SCH (08:33)
[2022-04-26] MEDS: PRENATAL VITAMIN 1 TAB PO SCH (08:33)
[2022-04-26] MEDS: oxyCODONE/ACETAMINOPHEN 5mg/325mg TAB PO PRN ×3 (08:36→20:41)
[2022-04-26] MEDS: IBUPROFEN 600 MG TAB PO PRN ×3 (08:37→20:40)
[2022-04-26] MEDS ORDERED: bisacodyL 10 MG SUPP PR PRN (21:55)
--- NOTE | 2022-04-27 07:19 | Obstetrical Progress Note ---
Date of Service April 27, 2022 Assessment & Plan (1) care following delivery: Plan: Patient is a 31-year-old now female who delivered via , postoperative day 3. had no complications. -Continue routine care, discharge today, discharge instructions reviewed. -O+, antibody negative, rubella immune, GBS negative -Hemoglobin 11.2 -Encouraged ambulation and breast-feeding -Discussed pain control with the patient and recommended alternating Percocet and ibuprofen. -Emphasized that it is okay to take pain medication given her recent surgery -Follow-up with Dr. De Luna in 6 weeks Admission and Anticipated Discharge Date Admission Date: April 24, 2022 Supervising Physician Co-Signing Physician Notes Resident Physician Supervision Note: I was present with Dr. Benito during the history and exam. I discussed the case with the resident and agree with the findings and plan as documented in the note. Any exceptions or clarifications are listed here: POD3 s/p pLTCS, doing well. Pain meds help with pain when she takes them, however skipped a dose yesterday and had some more pain in the evening. Discussed ok to take pain medication especially when at home and needing to do more activity. VSS, exam benign and wnl. Stable for d/c home today Documented By: Carli Franco MD Subjective Patient is a 31-year-old now female who delivered via , postoperative day 3. had no complications. Patient overall doing okay, does complain of diffuse abdominal pain but of note was not taking pain medication as frequently as she could be able to. She has been able to ambulate around the room and urinate without difficulty. Patient is eating and drinking without nausea or vomiting. Patient is passing gas. Lochia moderate and improving. Patient is comfortable with going home today. Patient overall continues to not have any questions or concerns at this time. Patient denies fever, chills, chest pain, shortness of breath, UTI symptoms, or headache. No other complaints at this time. Review of Systems Review of Systems: All systems reviewed & are unremarkable except as noted in HPI & below Physical Exam Constitutional: WD/WN, vitals as above Eyes: + anicteric sclerae Neck: normal visual inspection Respiratory: normal respiratory effort, lungs clear to auscultation Cardiovascular: RRR, no murmur, no edema Gastrointestinal (Abdomen): Percussion/Palpation: + abdomen tender and abdomen soft Musculoskeletal: Head/Neck/Chest: normocephalic and head atraumatic Skin: There is a clean, dry surgical incision at the lower abdomen without surrounding erythema or discharge. Neurologic: moves all extremities Psychiatric: A+Ox3, euthymic affect Genitourinary: Uterine fundus palpated at the level of the umbilicus, firm. Results & Data ([facility]) Vital Signs (Past 12 Hours) Vital Signs Temp Pulse Resp BP Pulse Ox 04/26/22 23:45 36.6 C 85 16 101/68 98 04/26/22 20:30 36.5 C 88 18 101/60 97
[2022-04-27] MEDS: DOCUSATE SODIUM 100 MG CAP PO SCH (07:29)
[2022-04-27] MEDS: PRENATAL VITAMIN 1 TAB PO SCH (07:29)
[2022-04-27] MEDS: oxyCODONE/ACETAMINOPHEN 5mg/325mg TAB PO PRN ×2 (07:30→11:29)
[2022-04-27] MEDS: IBUPROFEN 600 MG TAB PO PRN ×2 (07:30→11:29)
[2022-04-27] MEDS: FERROUS SULFATE 325 MG TAB PO SCH (07:30)
[2022-04-27] MEDS: SIMETHICONE 80 MG CHEW PO SCH (07:30)
--- NOTE | 2022-04-30 22:29 | Discharge Summary ---
Date of Service Date of admission: April 24, 2022 Date of discharge: April 27, 2022 Admission HPI Per Admitting Provider 31yo at 39+wks egmala presents to L&D with cc of planned induction. Elective induction. PNC c/b 1. IVF, normal echo PNL rh pos, ri ,gbs neg OBH: x 1 GYNH: nl paps, no stds Discharge Data Consultations 04/24/22 07:46 Consult Anesthesiology Stat Procedures Performed Operation Date: 04/24/22 20:15 Actual Procedures p Primary Low Transverse Section Hospital Course (1) Encounter for induction of labor: (2) resulting from in vitro fertilization, antepartum: Patient underwent labor induction with pitocin and arom. She progressed to complete and pushed with failure to descend and maternal exhaustion and proceeded to section for delivery. The patient underwent the above stated procedure without incident and her postoperative course and recovery was uncomplicated. On her postoperative day #3 she was tolerating a regular diet, voiding spontaneously, ambulating without problem and was using oral meds for adequate pain control. Her postoperative hemoglobin was 11.2. She was given written and verbal discharge instructions and told to followup in office at 6wks. She was given appropriate pain medicine prescriptions. Coding Level of Care Code None Diagnoses Encounter for induction of labor Z34.90 resulting from in vitro fertilization, antepartum O09.819
== END 2022-04-27 11:55 | disposition home or self-care (01) | DRG 788 ==
LOC: 4S1 07:43 → 4E2 04-25 01:54